=== PATIENT | male | born 1975 | race Caucasian/White ===

== ENCOUNTER 2017-11-23 13:02 | Emergency (ER) | payer BC ==
[2017-11-23 13:36] VITALS: BP 126/73
--- NOTE | 2017-11-23 13:37 | UC ---
Skin Complaint HPI - HPI Summary HPI Summary: Rash to forearms after gardening 6 days ago. itcy. tx with calamine. no fever. - History of Current Complaint Hx Obtained From: Patient Onset/Duration: Gradual Onset Timing: Constant Aggravating Factor(s): Nothing Alleviating Factor(s): Nothing Associated Signs & Symptoms: Positive: Rash. Negative: Difficulty Breathing, Fever <Bev Sherwood - Last Filed: 11/23/17 13:32> <Tyra Bar - Last Filed: 11/23/17 17:41> - History of Current Complaint Time Seen by Provider: 11/23/17 13:23 Stated Complaint: SKIN COMPLAINT - Allergy/Home Medications Allergies/Adverse Reactions: Allergies Allergy/AdvReac Type Severity Reaction Status Date / Time No Known Allergies Allergy Verified 11/23/17 13:36 Review of Systems Constitutional: Negative Skin: Rash Eyes: Negative ENT: Negative Respiratory: Negative Cardiovascular: Negative Gastrointestinal: Negative Genitourinary: Negative Motor: Negative Neurovascular: Negative Musculoskeletal: Negative Neurological: Negative Psychological: Negative Is Patient Immunocompromised?: No All Other Systems Reviewed And Are Negative: Yes <Bev Sherwood - Last Filed: 11/23/17 13:32> PMH/Surg Hx/FS Hx/Imm Hx Previously Healthy: Yes - Surgical History Surgical History: None - Family History Known Family History: Positive: None Family History: NON CONTRIBUTORY - Social History Occupation: Employed Full-time Lives: With Family Alcohol Use: Occasionally Substance Use Type: None Smoking Status (MU): Never Smoked Tobacco - Immunization History Vaccination Up to Date: Yes <Bev Sherwood - Last Filed: 11/23/17 13:32> Physical Exam Triage Information Reviewed: Yes Appearance: Well-Appearing Vital Signs Reviewed: Yes Eyes: Positive: Conjunctiva Clear ENT: Positive: Pharyngeal erythema, TMs normal. Negative: Nasal congestion, Nasal drainage Neck: Positive: Supple, Nontender, No Lymphadenopathy Respiratory: Positive: Lungs clear, Normal breath sounds Cardiovascular: Positive: RRR, No Murmur Abdomen Description: Positive: Nontender, No Organomegaly, Soft Bowel Sounds: Positive: Present Musculoskeletal: Positive: ROM Intact Neurological: Positive: Alert Psychological: Positive: Age Appropriate Behavior Skin Exam: Normal, Other - linear vesicular rash and patches of red with some vesicle to volar sirfaces. no hot, steaking and no d/c. <Bev Sherwood - Last Filed: 11/23/17 13:32> Vital Signs: Initial Vital Signs Temp 98.7 F 11/23/17 13:29 Pulse 76 11/23/17 13:29 Resp 18 11/23/17 13:29 BP 126/73 11/23/17 13:29 Pulse Ox 100 11/23/17 13:29 <Tyra Bar - Last Filed: 11/23/17 17:41> Course/Dx - Diagnoses Provider Diagnoses: Contoact dermatitis(poison dalila) <Bev Sherwood - Last Filed: 11/23/17 13:32> Discharge - Sign-Out/Discharge Documenting (check all that apply): Discharge/Admit/Transfer - Billing Disposition and Condition Condition: STABLE Disposition: HOME <Bev Sherwood - Last Filed: 11/23/17 13:32> - Billing Disposition and Condition Condition: STABLE Disposition: HOME <Tyra Bar - Last Filed: 11/23/17 17:41> - Discharge Plan Condition: Stable Disposition: HOME Prescriptions: methylPREDNISolone [Medrol Dosepak 4 MG*] 0 mg PO .SEE DAVID INSTRUCTION #1 tab Patient Education Materials: Poison Dalila (ED) Ref[place]: [facility] [Outside] Additional Instructions: CALL SATURDAY, [facility] [place] HELP YOU FIND A DOCTOR Attestation Statement User Type: Provider - I was available for consult. This patient was seen by the MEGAN. The patient was not presented to, seen by, or examined by me. -Yandel <Tyra Bar - Last Filed: 11/23/17 17:41>
== END 2017-11-23 13:47 | disposition home or self-care (01) ==
LOC: UCCORT 13:02
DX: L23.7 Allergic contact dermatitis due to plants, except food (principal)
CPT/HCPCS: 99212; G0463